=== PATIENT | male | born 1960 | race Caucasian/White ===

== ENCOUNTER 2022-11-20 08:29 | Inpatient (IN) | payer MEDICAID ==
[~2022-11-20] VITALS: Ht 177.8 cm; Wt 122.7 kg
[~2022-11-20 08:29] MED LIST: ALBU90AE INH; BENZ-111 PO; FURO-150 PO
[2022-11-20] MEDS ORDERED: methylPREDNISolone sod succ 125mg/2ml vial IV ONE (09:30)
[2022-11-20] MEDS ORDERED: ipratropium/albuterol 3ml nebule NEB ONE (09:30)
[2022-11-20 09:58] LABS: BASOPHILS # (AUTO) 0.1 X10'3 (0-0.2); BASOPHILS % (AUTO) 0.4 % (0-1); EOSINOPHILS # (AUTO) 0.1 X10'3 (0-0.9); EOSINOPHILS % (AUTO) 0.7 % (0-6); HEMATOCRIT 43.1 % (42.0-52.0); HEMOGLOBIN 14.3 g/dl (14.0-17.9); LYMPHOCYTES # (AUTO) 0.9 X10'3 (1.1-4.8); LYMPHOCYTES % (AUTO) 6.2 % (21-51); MEAN CORPUSCULAR HEMOGLOBIN 29.1 PG (27.0-31.0); MEAN CORPUSCULAR HGB CONC 33.1 g/dL (33.0-36.5); MEAN PLATELET VOLUME 6.6 FL (7.4-10.4); MONOCYTES # (AUTO) 1.7 X10'3 (0-0.9); MONOCYTES % (AUTO) 11.6 % (2-12); NEUTROPHILS # (AUTO) 11.9 X10'3 (1.8-7.7); NEUTROPHILS % (AUTO) 81.1 % (42-75); PLATELET COUNT 365 X10'3 (140-440); RED CELL DISTRIBUTION WIDTH 14.7 % (11.5-14.5); WHITE BLOOD COUNT 14.6 X10'3 (4.5-11.0)
[2022-11-20 10:06] LABS: ALANINE AMINOTRANSFERASE 17 U/L (12-78); ALBUMIN 3.4 G/DL (3.4-5.0); ALBUMIN/GLOBULIN RATIO 0.9 (1.1-1.5); ALKALINE PHOSPHATASE 105 IU/L (46-116); ANION GAP 6 (8-16); ASPARTATE AMINO TRANSFERASE 12 U/L (10-37); BILIRUBIN,TOTAL 0.5 MG/DL (0.1-1.0); BLOOD UREA NITROGEN 14 MG/DL (7-18); BUN/CREATININE RATIO 19.7 (10.0-20.0); CHLORIDE 99 MMOL/L (99-107); CREATININE 0.71 MG/DL (0.60-1.10); GLUCOSE 133 MG/DL (70-104); POTASSIUM 4.1 MMOL/L (3.5-5.1); SODIUM 136 MMOL/L (135-145); TOTAL CARBON DIOXIDE 30.7 MMOL/L (24-32); TOTAL PROTEIN 7.4 G/DL (6.4-8.2); eGFR > 90 ML/MIN
[2022-11-20] MEDS ORDERED: CefTRIAXone 2gm/D5W 50ml BAG 50 ML IV ONE (10:25)
[2022-11-20] MEDS ORDERED: azithromycin 250mg tablet PO ONE (10:25)
[2022-11-20] MEDS ORDERED: ondansetron/PF 4mg/2ml inj IV PRN (12:15)
[2022-11-20] MEDS ORDERED: potassium Cl 40MEQ/1/2NS 520ml 520 ML IV PRN (12:15)
[2022-11-20] MEDS ORDERED: HYDROcodone/acetaminophen 5mg/325mg tablet PO PRN (12:15)
[2022-11-20] MEDS ORDERED: magnesium hydroxide 30ml (MOM) UD suspension PO PRN (12:15)
[2022-11-20] MEDS ORDERED: acetaminophen 325mg tablet PO PRN (12:15)
[2022-11-20] MEDS ORDERED: magnesium Cl slow-release 64mg tablet PO PRN (12:15)
[2022-11-20] MEDS ORDERED: potassium Cl 20 mEq SR tablet PO PRN ×2 (12:15)
[2022-11-20] MEDS ORDERED: magnesium 4gm in 100ml NS 100 ML IV PRN (12:15)
[2022-11-20] MEDS ORDERED: mag hydrox/Alum hydrox/simeth 30ml oral suspension PO PRN (12:15)
[2022-11-20] MEDS ORDERED: HYDROcodone/acetaminophen 10/325mg tab PO PRN (12:15)
[2022-11-20] MEDS ORDERED: diphenhydrAMINE 25mg capsule PO PRN (12:15)
[2022-11-20] MEDS ORDERED: MESSAGE TO PHARMACY PO ONE (12:20)
[2022-11-20] MEDS ORDERED: glucagon, human recombinant 1mg kit SUBCUT PRN (12:20)
[2022-11-20] MEDS ORDERED: DEXTROSE 15 GM of carb/4 tabs (each vial/BOTTLE has 4 tablets) PO PRN ×2 (12:20)
[2022-11-20] MEDS ORDERED: dextrose 50%-water 50ml dispensing syringe IV PRN ×2 (12:20)
[2022-11-20] MEDS ORDERED: FURO-150 PO (13:32)
[2022-11-20] MEDS ORDERED: BUDE10.22 INH (14:03)
[2022-11-20] MEDS ORDERED: non-formulary drug (Albuterol Sulfate (Proair Respiclick) 2 PUFFS) INH PRN (15:45)
[2022-11-20] MEDS ORDERED: albuterol 2.5 MG/3 ML nebule NEB PRN ×2 (15:46→15:47)
[2022-11-20] MEDS: methylPREDNISolone sod succ 125mg/2ml vial IV SCH (16:31)
--- NOTE | 2022-11-20 17:41 | NUR ---
Pt just ate dinner already. Will defer blood sugar at this time
[2022-11-20 19:15] VITALS: BP 135/88
[2022-11-20] MEDS: K and/or MAG REPLACEMENT MC SCH (19:56)
[2022-11-20] MEDS: docusate sod 100mg capsule PO SCH (20:00)
[2022-11-20] MEDS: albuterol 2.5 MG/3 ML nebule NEB SCH (20:10)
[2022-11-20] MEDS: budesonide 0.5mg/2ml UD nebule IH SCH (20:11)
[2022-11-20] MEDS ORDERED: insulin glargine (Lantus) pen - multi-dose SQ SCH (21:00)
[2022-11-20] MEDS: insulin Lispro (HumaLOG) vial - multi-dose SQ SCH (21:29)
[2022-11-20 22:00] VITALS: BP 143/88
[2022-11-21] MEDS: methylPREDNISolone sod succ 125mg/2ml vial IV SCH ×2 (00:38→07:50)
[2022-11-21] MEDS: albuterol 2.5 MG/3 ML nebule NEB SCH ×4 (02:50→21:05)
[2022-11-21 06:00] VITALS: BP 116/71
[2022-11-21 06:35] LABS: BASOPHILS % (AUTO) 0.1 % (0-1); EOSINOPHILS % (AUTO) 0 % (0-6); HEMATOCRIT 40.8 % (42.0-52.0); HEMOGLOBIN 13.4 g/dl (14.0-17.9); LYMPHOCYTES # (AUTO) 0.5 X10'3 (1.1-4.8); LYMPHOCYTES % (AUTO) 3.4 % (21-51); MEAN CORPUSCULAR HEMOGLOBIN 29.2 PG (27.0-31.0); MEAN CORPUSCULAR HGB CONC 32.8 g/dL (33.0-36.5); MEAN PLATELET VOLUME 6.6 FL (7.4-10.4); MONOCYTES # (AUTO) 0.7 X10'3 (0-0.9); MONOCYTES % (AUTO) 4.7 % (2-12); NEUTROPHILS # (AUTO) 14.5 X10'3 (1.8-7.7); NEUTROPHILS % (AUTO) 91.8 % (42-75); PLATELET COUNT 360 X10'3 (140-440); RED BLOOD COUNT 4.58 X10'6 (4.70-6.10); RED CELL DISTRIBUTION WIDTH 14.6 % (11.5-14.5); WHITE BLOOD COUNT 15.8 X10'3 (4.5-11.0)
--- NOTE | 2022-11-21 06:51 | NUR ---
Patient in room [facility] 4013. I have received report from LIYAH Horton and had the opportunity to ask questions and assume patient care.
[2022-11-21 06:54] LABS: ALANINE AMINOTRANSFERASE 17 U/L (12-78); ALBUMIN 3.1 G/DL (3.4-5.0); ALBUMIN/GLOBULIN RATIO 0.8 (1.1-1.5); ALKALINE PHOSPHATASE 106 IU/L (46-116); ANION GAP 3 (8-16); ASPARTATE AMINO TRANSFERASE 12 U/L (10-37); BILIRUBIN,TOTAL 0.2 MG/DL (0.1-1.0); BLOOD UREA NITROGEN 19 MG/DL (7-18); BUN/CREATININE RATIO 22.6 (10.0-20.0); CALCIUM 9.5 MG/DL (8.5-10.1); CHLORIDE 101 MMOL/L (99-107); CREATININE 0.84 MG/DL (0.60-1.10); GLUCOSE 255 MG/DL (70-104); MAGNESIUM 2.3 MG/DL (1.5-2.4); POTASSIUM 4.8 MMOL/L (3.5-5.1); SODIUM 137 MMOL/L (135-145); TOTAL CARBON DIOXIDE 32.6 MMOL/L (24-32); TOTAL PROTEIN 7.2 G/DL (6.4-8.2); eGFR > 90 ML/MIN
[2022-11-21] MEDS: CefTRIAXone/D5W-Rocephin 1gm 50 ML IV SCH (07:49)
[2022-11-21] MEDS: K and/or MAG REPLACEMENT MC SCH ×2 (08:00→20:00)
[2022-11-21] MEDS: budesonide 0.5mg/2ml UD nebule IH SCH ×2 (08:14→21:05)
[2022-11-21] MEDS: docusate sod 100mg capsule PO SCH ×2 (08:46→20:13)
[2022-11-21] MEDS: azithromycin 250mg tablet PO SCH (08:46)
[2022-11-21] MEDS: enoxaparin 40mg/0.4ml syringe SUBCUT SCH (08:47)
[2022-11-21] MEDS: insulin Lispro (HumaLOG) vial - multi-dose SQ SCH ×4 (09:17→23:31)
--- NOTE | 2022-11-21 09:19 | NUR ---
DM Consult: Pt hx new DM DX last admit 10/05 A1C 7.2% provided written/verbal education by STEVE 10/23. Addendum: 11/21/22 at [address] Amended: Links added.
[2022-11-21 10:00] VITALS: BP 108/63
[2022-11-21] MEDS ORDERED: METH4TAB81 PO (12:49)
[2022-11-21] MEDS ORDERED: AZI25OT PO (12:49)
[2022-11-21] MEDS ORDERED: dextrose 50%-water 50ml dispensing syringe IV PRN ×2 (12:55)
[2022-11-21] MEDS ORDERED: glucagon, human recombinant 1mg kit SUBCUT PRN (12:55)
[2022-11-21] MEDS ORDERED: DEXTROSE 15 GM of carb/4 tabs (each vial/BOTTLE has 4 tablets) PO PRN ×2 (12:55)
[2022-11-21] MEDS ORDERED: MESSAGE TO PHARMACY PO ONE (12:55)
[2022-11-21 14:00] VITALS: BP 109/62
--- NOTE | 2022-11-21 15:19 | NUR ---
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
[2022-11-21] MEDS: metFORMIN 500mg tablet PO SCH (17:20)
[2022-11-21 18:00] VITALS: BP 110/62
--- NOTE | 2022-11-21 18:16 | NUR ---
Problems reprioritized. Patient report given, questions answered & plan of care reviewed with LIYAH Ybarra.
--- NOTE | 2022-11-21 19:19 | NUR ---
Page Sent PAGER ID: [phone] MESSAGE: [phone] charisma, pt has humalog and lantus with actos and Glucophage. do you want the insulin stopped or the po started. please call me rowan. thanks. yany
[2022-11-21] MEDS: atorvastatin 20mg tablet PO SCH (20:14)
--- NOTE | 2022-11-21 20:34 | NUR ---
[facility] charge nurse aware, pt received 24 units humalog Addendum: 11/21/22 at 2036 by Freddy Hinson RN [facility], instructor stated she will be putting in a note per their protocol. charge nurse aware, pt received 24 units humalog.
[2022-11-21 22:00] VITALS: BP 115/59
--- NOTE | 2022-11-21 22:18 | NUR ---
Student documentation: I have reviewed interventions, assessments performed and documented by Alley JONES [facility].
--- NOTE | 2022-11-21 22:19 | NUR ---
Student Medication Administration: For this medication-pass time frame, all medication were reviewed, dispensed, administered and documented per hospital policy by Alley Reeder [facility].
[2022-11-21] MEDS: insulin glargine (Lantus) pen - multi-dose SQ SCH (22:30)
[2022-11-22] MEDS: albuterol 2.5 MG/3 ML nebule NEB SCH ×4 (02:51→19:54)
[2022-11-22 06:19] LABS: ALANINE AMINOTRANSFERASE 22 U/L (12-78); ALBUMIN/GLOBULIN RATIO 0.8 (1.1-1.5); ALKALINE PHOSPHATASE 91 IU/L (46-116); ANION GAP 2 (8-16); ASPARTATE AMINO TRANSFERASE 12 U/L (10-37); BASOPHILS % (AUTO) 0 % (0-1); BILIRUBIN,TOTAL 0.2 MG/DL (0.1-1.0); BLOOD UREA NITROGEN 20 MG/DL (7-18); CALCIUM 9.4 MG/DL (8.5-10.1); CHLORIDE 103 MMOL/L (99-107); CREATININE 0.77 MG/DL (0.60-1.10); EOSINOPHILS % (AUTO) 0 % (0-6); GLUCOSE 126 MG/DL (70-104); HEMATOCRIT 38.1 % (42.0-52.0); HEMOGLOBIN 12.6 g/dl (14.0-17.9); LYMPHOCYTES # (AUTO) 1.2 X10'3 (1.1-4.8); LYMPHOCYTES % (AUTO) 5.7 % (21-51); MAGNESIUM 2.1 MG/DL (1.5-2.4); MEAN CORPUSCULAR HEMOGLOBIN 29.2 PG (27.0-31.0); MEAN CORPUSCULAR VOLUME 88.4 FL (78-98); MEAN PLATELET VOLUME 6.6 FL (7.4-10.4); MONOCYTES # (AUTO) 1.4 X10'3 (0-0.9); MONOCYTES % (AUTO) 6.7 % (2-12); NEUTROPHILS # (AUTO) 18.3 X10'3 (1.8-7.7); NEUTROPHILS % (AUTO) 87.6 % (42-75); PLATELET COUNT 382 X10'3 (140-440); POTASSIUM 4.2 MMOL/L (3.5-5.1); RED BLOOD COUNT 4.31 X10'6 (4.70-6.10); RED CELL DISTRIBUTION WIDTH 14.7 % (11.5-14.5); SODIUM 140 MMOL/L (135-145); TOTAL CARBON DIOXIDE 34.9 MMOL/L (24-32); TOTAL PROTEIN 6.6 G/DL (6.4-8.2); WHITE BLOOD COUNT 20.9 X10'3 (4.5-11.0); eGFR > 90 ML/MIN
--- NOTE | 2022-11-22 06:41 | NUR ---
reported to days. noted pt resting w/o distress. still on 4L with humidifies.
[2022-11-22 07:11] VITALS: BP 115/57
[2022-11-22] MEDS: azithromycin 250mg tablet PO SCH (07:51)
[2022-11-22] MEDS: metFORMIN 500mg tablet PO SCH ×3 (07:51→17:36)
[2022-11-22] MEDS: predniSONE 20 mg tablet PO SCH (07:52)
[2022-11-22] MEDS: K and/or MAG REPLACEMENT MC SCH ×2 (07:53→20:00)
[2022-11-22] MEDS: CefTRIAXone/D5W-Rocephin 1gm 50 ML IV SCH (07:53)
[2022-11-22] MEDS: docusate sod 100mg capsule PO SCH ×2 (07:53→20:00)
[2022-11-22] MEDS: enoxaparin 40mg/0.4ml syringe SUBCUT SCH (07:54)
[2022-11-22] MEDS ORDERED: furosemide 20MG tablet PO SCH (08:00)
[2022-11-22] MEDS: lisinopril 10 MG tablet PO SCH (08:00)
--- NOTE | 2022-11-22 08:13 | NUR ---
O2 Sat at rest on room air:_81__% If below 89%: Recovery O2 Sat at rest on _4__LPM:__90_%:___% via N/C (mask/nasal cannula, etc..) No further documentation is necessary. If O2 Sat did not drop below 89% on room air,ambulate patient on room air. O2 Sat while ambulating on room air:___% Recovery O2 Sat while ambulating on ___LPM:___% No further documentation is necessary. If patient does not drop below 89% while ambulating, he/she does not qualify for home O2.
[2022-11-22] MEDS: budesonide 0.5mg/2ml UD nebule IH SCH ×2 (08:43→19:53)
[2022-11-22 10:39] VITALS: BP 99/58
--- NOTE | 2022-11-22 10:43 | NUR ---
PAGER ID: [phone] MESSAGE: Dewey Jensen [id number] restarted pt. on hypo/hyperglycemic protocol since you started metformin and BG reduced. Last CXR states to repeat. Want repeat CXR? Pt. unaware he is diabetic- want to discuss? Jamila [phone]
--- NOTE | 2022-11-22 11:00 | NUR ---
Hospitalist rounded on floor. She is aware of current BP and that Lisinopril was held. Does not want repeat CXR.
--- NOTE | 2022-11-22 11:26 | NUR ---
PAGER ID: [phone] MESSAGE: Dewey Jensen [id number] Pt. requesting to speak to you regarding new diabetes diagnosis. Jamila [phone]
--- NOTE | 2022-11-22 11:35 | NUR ---
Hospitalist aware of pt. transfer to tele floor.
[2022-11-22 12:08] LABS: HBSAG SCREEN Negative (Negative); HEP B CORE AB, TOT Positive (Negative)
[2022-11-22 15:10] VITALS: BP 117/54
[2022-11-22 18:00] VITALS: BP 135/72
--- NOTE | 2022-11-22 18:37 | NUR ---
Gave report to Jayleen PELLETIER
--- NOTE | 2022-11-22 18:54 | NUR ---
found diet was still coming up as Regular - cancelled all diets in computer and re ordered carb control so that carbs would be correct. will disregard the next blood sugar for protocol since he ate 110 carbs.
[2022-11-22] MEDS: insulin glargine (Lantus) pen - multi-dose SQ SCH (21:00)
[2022-11-22] MEDS: atorvastatin 20mg tablet PO SCH (21:43)
[2022-11-22 22:00] VITALS: BP 150/66
--- NOTE | 2022-11-22 22:15 | NUR ---
disregard blood sugar of 186 for protocol as patient ate regular dinner tray instead of carb control. see previous note. will notify day RN.
[2022-11-23 02:00] VITALS: BP 128/65
[2022-11-23] MEDS: albuterol 2.5 MG/3 ML nebule NEB SCH ×3 (02:08→14:49)
[2022-11-23 05:00] VITALS: BP 160/78
--- NOTE | 2022-11-23 06:10 | NUR ---
Patient in room [facility]TH[facility] 4013. I have received report from Amada PELLETIER and had the opportunity to ask questions and assume patient care.
[2022-11-23 07:02] LABS: BASOPHILS % (AUTO) 0.1 % (0-1); EOSINOPHILS # (AUTO) 0.1 X10'3 (0-0.9); EOSINOPHILS % (AUTO) 0.5 % (0-6); HEMATOCRIT 40.3 % (42.0-52.0); HEMOGLOBIN 13.3 g/dl (14.0-17.9); LYMPHOCYTES # (AUTO) 1.9 X10'3 (1.1-4.8); LYMPHOCYTES % (AUTO) 14.8 % (21-51); MEAN CORPUSCULAR HEMOGLOBIN 29.1 PG (27.0-31.0); MEAN CORPUSCULAR HGB CONC 33.1 g/dL (33.0-36.5); MEAN CORPUSCULAR VOLUME 87.9 FL (78-98); MEAN PLATELET VOLUME 6.4 FL (7.4-10.4); MONOCYTES # (AUTO) 1.2 X10'3 (0-0.9); MONOCYTES % (AUTO) 9.5 % (2-12); NEUTROPHILS # (AUTO) 9.4 X10'3 (1.8-7.7); NEUTROPHILS % (AUTO) 75.1 % (42-75); PLATELET COUNT 372 X10'3 (140-440); RED BLOOD COUNT 4.59 X10'6 (4.70-6.10); RED CELL DISTRIBUTION WIDTH 14.7 % (11.5-14.5); WHITE BLOOD COUNT 12.6 X10'3 (4.5-11.0)
[2022-11-23 07:30] LABS: ALANINE AMINOTRANSFERASE 23 U/L (12-78); ALBUMIN 2.9 G/DL (3.4-5.0); ALBUMIN/GLOBULIN RATIO 0.9 (1.1-1.5); ALKALINE PHOSPHATASE 90 IU/L (46-116); ANION GAP 4 (8-16); ASPARTATE AMINO TRANSFERASE 16 U/L (10-37); BILIRUBIN,TOTAL 0.1 MG/DL (0.1-1.0); BLOOD UREA NITROGEN 18 MG/DL (7-18); CHLORIDE 101 MMOL/L (99-107); CREATININE 0.75 MG/DL (0.60-1.10); GLUCOSE 100 MG/DL (70-104); MAGNESIUM 1.9 MG/DL (1.5-2.4); SODIUM 141 MMOL/L (135-145); TOTAL CARBON DIOXIDE 35.8 MMOL/L (24-32); TOTAL PROTEIN 6.3 G/DL (6.4-8.2); eGFR > 90 ML/MIN
[2022-11-23] MEDS: CefTRIAXone/D5W-Rocephin 1gm 50 ML IV SCH (07:54)
[2022-11-23] MEDS: metFORMIN 500mg tablet PO SCH ×2 (07:59→14:06)
[2022-11-23] MEDS: pioglitazone 15mg tablet PO SCH (08:00)
[2022-11-23] MEDS: K and/or MAG REPLACEMENT MC SCH (08:00)
[2022-11-23] MEDS: docusate sod 100mg capsule PO SCH (08:00)
[2022-11-23] MEDS: predniSONE 20 mg tablet PO SCH (08:00)
[2022-11-23 08:01] VITALS: BP_SYST 160
[2022-11-23] MEDS: azithromycin 250mg tablet PO SCH (08:01)
[2022-11-23] MEDS: lisinopril 10 MG tablet PO SCH (08:01)
[2022-11-23] MEDS: enoxaparin 40mg/0.4ml syringe SUBCUT SCH (08:06)
[2022-11-23] MEDS: budesonide 0.5mg/2ml UD nebule IH SCH (09:00)
--- NOTE | 2022-11-23 10:05 | NUR ---
O2 Sat at rest on room air:95% If below 89%: Recovery O2 Sat at rest on ___LPM:___%:___% via (mask/nasal cannula, etc..) No further documentation is necessary. If O2 Sat did not drop below 89% on room air,ambulate patient on room air. O2 Sat while ambulating on room air:82% Recovery O2 Sat while ambulating on 2 LPM:92% No further documentation is necessary. If patient does not drop below 89% while ambulating, he/she does not qualify for home O2.
--- NOTE | 2022-11-23 11:29 | NUR ---
0900 SVN TRIAGED . RT NOT AVAILABLE
[2022-11-23 11:36] LABS: TOTAL CELLS COUNTED 100
[2022-11-23 11:37] LABS: PLATELET ESTIMATE NORMAL
--- NOTE | 2022-11-23 15:31 | NUR ---
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
--- NOTE | 2022-11-23 17:00 | NUR ---
Patient was discharged today with O2 and a couple Rx, [facility] and got approval for patient to go there after 5pm due to O2 being delivered late and needing to product picker RX from [facility]. All patient belongings were gathered. IV was removed by RN. [place] transportation was called for patient. Patient was alert, orientated and appropriate. Patient was wheeled down stairs and helped into vehicle
== END 2022-11-23 17:10 | disposition home or self-care (01) | DRG 194 ==
LOC: ER 08:29 → ED HOLD 12:17 → ORTHO 4S 19:00
PROVIDERS: ADMIT Internal Medicine; ATTEND Internal Medicine
DX: I50.33 Acute on chronic diastolic (congestive) heart failure (principal); J18.9 Pneumonia, unspecified organism; J44.0 Chronic obstructive pulmonary disease with (acute) lower respiratory infection; E11.65 Type 2 diabetes mellitus with hyperglycemia; N28.9 Disorder of kidney and ureter, unspecified; R09.02 Hypoxemia; E66.01 Morbid (severe) obesity due to excess calories; G47.30 Sleep apnea, unspecified; I25.10 Atherosclerotic heart disease of native coronary artery without angina pectoris; J44.1 Chronic obstructive pulmonary disease with (acute) exacerbation; Z59.00 Homelessness unspecified; Z86.16 Personal history of COVID-19; Z87.891 Personal history of nicotine dependence; Z68.38 Body mass index [BMI] 38.0-38.9, adult; Z79.899 Other long term (current) drug therapy
CPT/HCPCS: 36415; 71045; 80053; 82948; 83735; 83880; 84145; 84484; 85007; 85025; 85610; 86704; 86705; 86706; 87340; 93005; 94640; 94760; 96365; 96375; 99285; G0378; J0696; J1650; J1815; J2930; J7512

== ENCOUNTER 2023-07-23 10:53 | Emergency (ER) | payer MEDICARE, MEDICAID ==
[~2023-07-23] VITALS: Ht 180.3 cm; Wt 117.1 kg
[~2023-07-23 10:53] MED LIST changes: +AZI25OT PO; -BENZ-111 PO; +BUDE10.22 INH; +METH4TAB81 PO
[2023-07-23] MEDS ORDERED: CEPH-585 PO (11:20)
[2023-07-23] MEDS ORDERED: NAPR-56 PO (11:20)
[2023-07-23] MEDS ORDERED: SULF1TAB49 PO (11:20)
[2023-07-23 11:53] VITALS: BP 149/89; PULSE 87; RESP 16; O2SAT 96
[2023-07-23 12:02] VITALS: TEMP 98.8
== END 2023-07-23 12:06 | disposition home or self-care (01) ==
LOC: ER 10:53
DX: L03.116 Cellulitis of left lower limb (principal); J44.9 Chronic obstructive pulmonary disease, unspecified; G47.30 Sleep apnea, unspecified; Z79.899 Other long term (current) drug therapy
CPT/HCPCS: 99283; A6258; A6449

== ENCOUNTER 2024-11-04 10:14 | Inpatient (IN) | payer MEDICARE, OTHER ==
[~2024-11-04] VITALS: Ht 177.8 cm; Wt 11.8 kg
[2024-11-04] VITALS (14 sets, daily range): BP systolic 132–152; BP diastolic 74–98; PULSE 20–86; RESP 15–21; TEMP 97.9–99.1; O2SAT 90–95
[2024-11-04] MEDS ORDERED: ipratropium/albuterol 3ml nebule NEB PRN ×2 (10:45→13:15)
[2024-11-04 10:47] LABS: BASOPHILS % (AUTO) 0.6 % (0-1); EOSINOPHILS # (AUTO) 0.2 X10'3 (0-0.9); EOSINOPHILS % (AUTO) 2.5 % (0-6); HEMATOCRIT 44.7 % (42.0-52.0); HEMOGLOBIN 15.1 g/dl (14.0-17.9); MEAN CORPUSCULAR HEMOGLOBIN 31.7 PG (27.0-31.0); MEAN CORPUSCULAR HGB CONC 33.8 g/dL (33.0-36.5); MEAN CORPUSCULAR VOLUME 93.9 FL (78-98); MEAN PLATELET VOLUME 6.7 FL (7.4-10.4); MONOCYTES # (AUTO) 0.9 X10'3 (0-0.9); MONOCYTES % (AUTO) 12.5 % (2-12); NEUTROPHILS # (AUTO) 5.1 X10'3 (1.8-7.7); NEUTROPHILS % (AUTO) 70.4 % (42-75); PLATELET COUNT 245 X10'3 (140-440); RED BLOOD COUNT 4.76 X10'6 (4.70-6.10); RED CELL DISTRIBUTION WIDTH 13.5 % (11.5-14.5); WHITE BLOOD COUNT 7.3 X10'3 (4.5-11.0)
[2024-11-04] MEDS: ipratropium/albuterol 3ml nebule NEB ONE (11:10)
[2024-11-04] MEDS: ipratropium/albuterol 3ml nebule NEB SCH ×2 (11:10→15:58)
[2024-11-04 11:16] LABS: ALBUMIN 3.4 G/DL (3.4-5.0); ANION GAP 1 (8-16); BLOOD UREA NITROGEN 12 MG/DL (7-18); BUN/CREATININE RATIO 17.6 (10.0-20.0); CALCIUM 8.5 MG/DL (8.5-10.1); CHLORIDE 99 MMOL/L (99-107); CREATININE 0.68 MG/DL (0.60-1.10); GLUCOSE 111 MG/DL (70-104); POTASSIUM 4.5 MMOL/L (3.5-5.1); PRO BRAIN NATRIURETIC PEPTIDE 776 PG/ML (0-125); SODIUM 137 MMOL/L (135-145); eCRCL 18 ML/MIN; eGFR > 90 ML/MIN
[2024-11-04] MEDS: methylPREDNISolone sod succ 125mg/2ml vial IV ONE (11:52)
[2024-11-04] MEDS: albuterol 2.5 MG/3 ML nebule CONTNEB ONE (11:57)
[2024-11-04] MEDS: CefTRIAXone 2gm/D5W 50ml BAG 50 ML IV ONE (12:31)
[2024-11-04] MEDS: azithromycin 250mg tablet PO ONE (12:33)
[2024-11-04] MEDS ORDERED: LOSA50TA64 PO (12:36)
[2024-11-04] MEDS ORDERED: NO HOME MEDS (12:37)
[2024-11-04] MEDS ORDERED: magnesium hydroxide 30ml (MOM) UD suspension PO PRN (13:15)
[2024-11-04] MEDS ORDERED: magnesium sulf-water 4G/100mL 100 ML IV PRN (13:15)
[2024-11-04] MEDS ORDERED: ondansetron/PF 4mg/2ml inj IV PRN (13:15)
[2024-11-04] MEDS ORDERED: mag hydrox/Alum hydrox/simeth 30ml oral suspension PO PRN (13:15)
[2024-11-04] MEDS ORDERED: potassium Cl 20 mEq SR tablet PO PRN ×2 (13:15)
[2024-11-04] MEDS ORDERED: potassium Cl 40MEQ/1/2NS 520ml 520 ML IV PRN (13:15)
[2024-11-04] MEDS ORDERED: magnesium Cl slow-release 64mg tablet PO PRN (13:15)
[2024-11-04] MEDS ORDERED: acetaminophen 325mg tablet PO PRN ×2 (13:15)
[2024-11-04] MEDS ORDERED: magnesium sulf-water 2g/50mL 50 ML IV PRN (13:15)
[2024-11-04] MEDS: PERFLUTREN PROTEIN-A MICROSPHR (Optison) 0.22 MG/ML 3ML VIAL IV ONE (13:28)
[2024-11-04 14:11] LABS: INR 1.1 INR
[2024-11-04 14:20] LABS: ALANINE AMINOTRANSFERASE 34 U/L (12-78); ALBUMIN 3.6 G/DL (3.4-5.0); ALBUMIN/GLOBULIN RATIO 0.9 (1.1-1.5); ALKALINE PHOSPHATASE 104 IU/L (46-116); ASPARTATE AMINO TRANSFERASE 22 U/L (10-37); BILIRUBIN,DIRECT 0.1 MG/DL (0-0.3); BILIRUBIN,TOTAL 0.3 MG/DL (0.1-1.0); POTASSIUM 4.5 MMOL/L (3.5-5.1); TOTAL PROTEIN 7.6 G/DL (6.4-8.2)
[2024-11-04 14:26] LABS: HEMOGLOBIN A1C 6.1 % (4.5-6.2)
[2024-11-04] MEDS: furosemide 20MG tablet PO SCH (16:30)
[2024-11-04] MEDS: enoxaparin 40mg/0.4ml syringe SUBCUT SCH (17:50)
[2024-11-04] MEDS: methylPREDNISolone sod succ/PF 40mg inj. IV SCH (19:23)
[2024-11-04] MEDS: docusate sod 100mg capsule PO SCH (19:25)
[2024-11-04] MEDS: K and/or MAG REPLACEMENT MC SCH (20:00)
[2024-11-05] VITALS (19 sets, daily range): BP systolic 136–138; BP diastolic 63–80; PULSE 71–88; RESP 16–22; TEMP 97.4–98.1; O2SAT 89–96
[2024-11-05 06:18] LABS: BASOPHILS % (AUTO) 0.1 % (0-1); EOSINOPHILS % (AUTO) 0 % (0-6); HEMATOCRIT 44.8 % (42.0-52.0); HEMOGLOBIN 14.9 g/dl (14.0-17.9); LYMPHOCYTES # (AUTO) 0.4 X10'3 (1.1-4.8); LYMPHOCYTES % (AUTO) 3.1 % (21-51); MEAN CORPUSCULAR HEMOGLOBIN 31.7 PG (27.0-31.0); MEAN CORPUSCULAR HGB CONC 33.2 g/dL (33.0-36.5); MEAN CORPUSCULAR VOLUME 95.3 FL (78-98); MEAN PLATELET VOLUME 7.2 FL (7.4-10.4); MONOCYTES # (AUTO) 0.3 X10'3 (0-0.9); MONOCYTES % (AUTO) 2.1 % (2-12); NEUTROPHILS # (AUTO) 11.7 X10'3 (1.8-7.7); NEUTROPHILS % (AUTO) 94.7 % (42-75); PLATELET COUNT 284 X10'3 (140-440); RED CELL DISTRIBUTION WIDTH 13.5 % (11.5-14.5); WHITE BLOOD COUNT 12.4 X10'3 (4.5-11.0)
[2024-11-05 06:20] LABS: ALBUMIN 3.6 G/DL (3.4-5.0); ANION GAP 4 (8-16); BLOOD UREA NITROGEN 18 MG/DL (7-18); BUN/CREATININE RATIO 18.8 (10.0-20.0); CALCIUM 8.9 MG/DL (8.5-10.1); CHLORIDE 96 MMOL/L (99-107); CHOLESTEROL 139 MG/DL (0-200); CREATININE 0.96 MG/DL (0.60-1.10); GLUCOSE 188 MG/DL (70-104); HDL CHOLESTEROL 46 MG/DL (35-60); LDL CHOLESTEROL 77 MG/DL (50-100); POTASSIUM 4.7 MMOL/L (3.5-5.1); SODIUM 137 MMOL/L (135-145); TRIGLYCERIDES 58 MG/DL (20-135); eCRCL 13 ML/MIN; eGFR 78 ML/MIN
[2024-11-05] MEDS: losartan 50mg tablet PO SCH (07:49)
[2024-11-05] MEDS: azithromycin/NS 500mg/250ml 250 ML IV SCH (10:18)
[2024-11-05] MEDS: atorvastatin 20mg tablet PO SCH (10:18)
[2024-11-05] MEDS: CefTRIAXone/D5W-Rocephin 1gm 50 ML IV SCH (10:18)
[2024-11-06] VITALS (18 sets, daily range): BP systolic 119–136; BP diastolic 68–82; PULSE 68–83; RESP 16–19; TEMP 97.4–98.3; O2SAT 88–97
[2024-11-06 06:51] LABS: BASOPHILS % (AUTO) 0 % (0-1); EOSINOPHILS % (AUTO) 0 % (0-6); HEMATOCRIT 45.7 % (42.0-52.0); LYMPHOCYTES # (AUTO) 0.6 X10'3 (1.1-4.8); LYMPHOCYTES % (AUTO) 3.5 % (21-51); MEAN CORPUSCULAR HEMOGLOBIN 31.4 PG (27.0-31.0); MEAN CORPUSCULAR HGB CONC 32.9 g/dL (33.0-36.5); MEAN CORPUSCULAR VOLUME 95.3 FL (78-98); MEAN PLATELET VOLUME 6.9 FL (7.4-10.4); MONOCYTES # (AUTO) 0.8 X10'3 (0-0.9); NEUTROPHILS # (AUTO) 14.9 X10'3 (1.8-7.7); NEUTROPHILS % (AUTO) 91.5 % (42-75); PLATELET COUNT 308 X10'3 (140-440); RED BLOOD COUNT 4.79 X10'6 (4.70-6.10); RED CELL DISTRIBUTION WIDTH 14.1 % (11.5-14.5); WHITE BLOOD COUNT 16.3 X10'3 (4.5-11.0)
[2024-11-06 07:02] LABS: ALBUMIN 3.5 G/DL (3.4-5.0); ANION GAP 0 (8-16); BLOOD UREA NITROGEN 25 MG/DL (7-18); BUN/CREATININE RATIO 25.8 (10.0-20.0); CALCIUM 9.1 MG/DL (8.5-10.1); CHLORIDE 99 MMOL/L (99-107); CREATININE 0.97 MG/DL (0.60-1.10); GLUCOSE 128 MG/DL (70-104); MAGNESIUM 2.3 MG/DL (1.5-2.4); POTASSIUM 5.2 MMOL/L (3.5-5.1); SODIUM 139 MMOL/L (135-145); eCRCL 13 ML/MIN; eGFR 77 ML/MIN
[2024-11-06 07:07] LABS: TOTAL CARBON DIOXIDE 40.2 MMOL/L (24-32)
[2024-11-06] MEDS: enoxaparin 30mg/0.3ml syringe SUBCUT SCH (08:44)
[2024-11-06] MEDS ORDERED: BUDE10.2 INH (12:39)
[2024-11-06] MEDS ORDERED: ATOR20TA66 PO (12:39)
[2024-11-06] MEDS ORDERED: PRED10TA23 PO (12:39)
[2024-11-06] MEDS ORDERED: LACT1CAP26 PO (12:39)
[2024-11-06] MEDS ORDERED: CEFD300C3 PO (12:39)
[2024-11-06] MEDS ORDERED: ALBU8HFA PO (12:39)
[2024-11-06] MEDS ORDERED: FURO20TA4 PO (12:39)
[2024-11-06] MEDS ORDERED: LOSA50TA64 PO (12:39)
[2024-11-07] VITALS (10 sets, daily range): BP systolic 131–132; BP diastolic 71–82; PULSE 66–88; RESP 16–20; TEMP 97.5–97.9; O2SAT 90–97
[2024-11-07 06:08] LABS: BASOPHILS % (AUTO) 0.1 % (0-1); EOSINOPHILS % (AUTO) 0 % (0-6); HEMATOCRIT 46.2 % (42.0-52.0); HEMOGLOBIN 15.1 g/dl (14.0-17.9); LYMPHOCYTES # (AUTO) 0.6 X10'3 (1.1-4.8); MEAN CORPUSCULAR HEMOGLOBIN 31.3 PG (27.0-31.0); MEAN CORPUSCULAR HGB CONC 32.8 g/dL (33.0-36.5); MEAN CORPUSCULAR VOLUME 95.6 FL (78-98); MEAN PLATELET VOLUME 7.2 FL (7.4-10.4); MONOCYTES # (AUTO) 0.8 X10'3 (0-0.9); MONOCYTES % (AUTO) 5.6 % (2-12); NEUTROPHILS # (AUTO) 13.8 X10'3 (1.8-7.7); NEUTROPHILS % (AUTO) 90.3 % (42-75); PLATELET COUNT 312 X10'3 (140-440); RED BLOOD COUNT 4.83 X10'6 (4.70-6.10); RED CELL DISTRIBUTION WIDTH 13.4 % (11.5-14.5); WHITE BLOOD COUNT 15.2 X10'3 (4.5-11.0)
[2024-11-07 06:46] LABS: ALBUMIN 3.8 G/DL (3.4-5.0); ANION GAP 6 (8-16); BLOOD UREA NITROGEN 30 MG/DL (7-18); BUN/CREATININE RATIO 32.6 (10.0-20.0); CALCIUM 9.2 MG/DL (8.5-10.1); CHLORIDE 96 MMOL/L (99-107); CREATININE 0.92 MG/DL (0.60-1.10); GLUCOSE 130 MG/DL (70-104); MAGNESIUM 2.3 MG/DL (1.5-2.4); POTASSIUM 4.8 MMOL/L (3.5-5.1); SODIUM 138 MMOL/L (135-145); TOTAL CARBON DIOXIDE 36.4 MMOL/L (24-32); eCRCL 13 ML/MIN; eGFR 82 ML/MIN
== END 2024-11-07 15:10 | disposition home or self-care (01) | DRG 177 ==
LOC: ER 10:14 → ED HOLD 12:03 → ORTHO 4S 14:05
PROVIDERS: ADMIT Family Medicine; ATTEND Family Medicine
PROC: 5A0935A Assistance with Respiratory Ventilation, Less than 24 Consecutive Hours, High Flow/Velocity Cannula (ICD-10-PCS; principal; 2024-11-05)
PROC: 5A0935A Assistance with Respiratory Ventilation, Less than 24 Consecutive Hours, High Flow/Velocity Cannula (ICD-10-PCS; 2024-11-06)
DX: J15.69 Pneumonia due to other Gram-negative bacteria (principal); J96.01 Acute respiratory failure with hypoxia; J44.1 Chronic obstructive pulmonary disease with (acute) exacerbation; I50.32 Chronic diastolic (congestive) heart failure; J44.0 Chronic obstructive pulmonary disease with (acute) lower respiratory infection; Z59.00 Homelessness unspecified; J15.9 Unspecified bacterial pneumonia; I11.0 Hypertensive heart disease with heart failure; Z20.822 Contact with and (suspected) exposure to COVID-19; E11.9 Type 2 diabetes mellitus without complications; J43.9 Emphysema, unspecified; G47.30 Sleep apnea, unspecified; Z79.899 Other long term (current) drug therapy; E66.01 Morbid (severe) obesity due to excess calories
CPT/HCPCS: 36415; 71045; 80048; 80061; 80076; 83036; 83605; 83735; 83880; 84132; 84145; 84484; 85025; 85610; 87040; 87081; 87502; 87503; 87811; 93005; 93306; 94640; 94760; 96365; 96372; 96375; 96376; 97116; 97161; 97530; 99291; A7015; G0378; J0456; J0696; J1650; J2919; J7030